=== PATIENT | male | born 1980 | race Caucasian/White ===

== ENCOUNTER 2023-11-11 06:06 | Emergency (ER) | payer OTHER, SELFPAY ==
[2023-11-11 06:16] VITALS: BP 127/81; PULSE 105; RESP 20; O2SAT 94; BMI 40.7
--- NOTE | 2023-11-11 06:49 | CRLHL7_ITS ---
For Patients: As a result of the Century Cures Act, medical imaging exams and procedure reports are released immediately into your electronic medical record. You may view this report before your referring provider. If you have questions, please contact your health care provider. Indication: Right lower quadrant pain nausea vomiting Technique: Volumetric multidetector CT images of the abdomen and pelvis were obtained after the administration of intravenous contrast. 147 cc Isovue 370 low osmolar intravenous contrast Comparison: None available. Findings: The lung bases are clear. The liver is enlarged with moderate hepatomegaly and hepatic steatosis. The portal vein is patent. The gallbladder is unremarkable without evidence of radiopaque calculus. There is no significant common biliary ductal dilatation or abrupt cut off. The spleen is normal in enhancement and size. The stomach and duodenum are grossly unremarkable. The pancreas is normal in enhancement without significant atrophy. The adrenal glands are unremarkable. There is partial devascularization of the superior pole of the left kidney with additional streaky corticomedullary differentiation. There is asymmetric perfusion of the right kidney with mildly diminished corticomedullary enhancement. No obvious obstructive uropathy. There is a mild amount of stool seen throughout the colon. There is mild distal colonic diverticulosis. The appendix is unremarkable. There is no significant mesenteric, retroperitoneal, or pelvic sidewall lymph nodes. There is partial visualization of a dissection extending from the visualized descending thoracic aorta into the infrarenal abdominal aorta with apparent inclusion of the bilateral renal artery takeoffs within the false lumen with devascularization of the superior pole of the left kidney and diminished corticomedullary perfusion of the right kidney. 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 There is demonstration of irregularity and diminished contrast perfusion of the inferior vena cava with extensive retroperitoneal hemorrhage. There is effacement of the bladder secondary to extension of retroperitoneal hemorrhage along the right iliac and psoas musculature. No intra-abdominal free air. Large fat containing umbilical hernia. The lumbar vertebral body heights are grossly maintained in satisfactory alignment without evidence of displaced fracture, lytic or blastic lesion. Impression: 1. Demonstration of an evolving dissection extending from the partially visualized descending thoracic aorta with inclusion of the bilateral renal artery takeoffs and evolving infarct of the superior pole of the left kidney. Additional diffusely decreased perfusion of the right kidney is appreciated. 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 2. Questionable irregularity of the inferior vena cava with extensive right lower quadrant retroperitoneal hemorrhage which may represent rupture from inferior vena cava versus rupture of adjacent iliac aneurysm. Findings were discussed with Dr. Saldana at 8:43 a.m. November 11, 20[address] Please note that all CT scans at this facility use dose modulation, iterative reconstruction, and/or weight-based dosing when appropriate to reduce radiation dose to as low as reasonably achievable. Dictated by Morgan Phillips MD @ 11/11/2023 8:43:59 AM (Electronically Signed)
--- NOTE | 2023-11-11 06:52 | ED_ITS ---
HPI - General Adult General Chief complaint: Abdominal Pain Stated complaint: Abdominal pain, suspected appendicitis Time Seen by Provider: 11/11/23 06:35 Source: patient Mode of arrival: ambulatory Limitations: no limitations History of Present Illness HPI narrative: 43-year-old male presents to the emergency department for evaluation of right lower quadrant abdominal pain that started at 5:00 a.m.. No trauma or injury, no prior history of similar symptoms. Denies any prior history of abdominal surgeries. Reports history of hypertension, takes an unknown medication. Pain localized in the right lower quadrant area, does not radiate. States his bowel movements have been normal, appetite has been normal. No vomiting. No history of bloody stools. No urinary pain, dysuria, hematuria or frequency. Denies testicular or pain. No back pain. Has not tried taking any medication to help with his symptoms. He also reports that he had numbness in his leg which has gotten better. It sounds more like the pain had radiated down the right leg but it is difficult with his cognition to get clarification of this. He does however state that that is better now and he can bear weight and move the leg with no weakness. He can not clarify if it is anterior, lateral, posterior the upper lower leg because he says that it is better now. When I question his previous allergy to contrast dye that is listed in his outside records, he initially had denied allergies but then confirms he got hives after being given contrast dye. Does not believe he has had steroids to premedicate in the past. Sounds like he was given p.o. Benadryl without complication last time. Past medical history notable for hypertension but I do not see that he is prescribed a medication in his outside records as he claims. He is a nonsmoker, nondrinker. Accompanied by mother today. Surgical history lists a wisdom tooth extraction. ROS notable for the abdominal and mysterious leg symptoms as described above, otherwise denies times 12 systems. I am detecting what is likely some cognitive delay which may limit his insight. Related Data Allergies Allergy/AdvReac Type Severity Reaction Status Date / Time Iodinated Contrast Media Allergy Intermediate Hives Verified 11/11/23 07:05 [facility] Medical History Hypertension ?I10 - Essential (primary) hypertension (ICD-10) Social History Smoking Status: Never smoker How often do you have a drink containing alcohol: never AUDIT-C Alcohol total score: 0 Non-prescribed substance use: denies use Exam Const: Vital Signs, click to edit/add: Vital Signs - 24 hr 11/11/23 06:16 11/11/23 06:59 11/11/23 08:13 Temperature Pulse Rate [Pulse Oximeter] 105 H Respiratory Rate 20 18 Blood Pressure [Le ft Upper Arm] 127/81 109/81 Pulse Oximetry 94 99 98 Oxygen Delivery Me thod Room Air Room Air Oxygen Flow Rate 11/11/23 08:32 11/11/23 09:29 Temperature 97.9 F Pulse Rate [Pulse Oximeter] 80 57 L Respiratory Rate 20 20 Blood Pressure [Le ft Upper Arm] 109/83 134/66 Pulse Oximetry 97 96 Oxygen Delivery Me thod Room Air Nasal Cannula Oxygen Flow Rate 2 Documenting provider has reviewed patient's vital signs: yes Common normals: no apparent distress Other: Very diaphoretic, uncomfortable. Polite and cooperative. Not an ideal historian. HENMT: Common normals: normocephalic and oropharynx normal Head and scalp: normocephalic Mouth: oral and palatal mucosa normal Throat: posterior oropharynx normal Eye: Common normals: conjunctivae normal General eye: normal appearance of both eyes Conjunctiva: conjunctiva(e) normal Neck & C-Spine: Common normals: full ROM and no lymphadenopathy Resp: Common normals: normal respiratory effort, no use of accessory muscles and clear to auscultation bilaterally Effort & inspection: able to speak in complete sentences Auscultation: clear to auscultation bilaterally Cardio: Common normals: regular rate, regular rhythm, S1 normal heart sound, S2 normal heart sound and no murmurs Rate: regular rate Rhythm: regular rhythm Heart sounds: S1 normal and S2 normal GI: Other: Obese, limiting ability of exam. I cannot tell if he is distended. He is tender to palpation of the right lower quadrant. I do not detect any obvious femoral hernia. He does have a reducible umbilical hernia which does not reproduce his pain when I manipulate this area. Bowel sounds are distant but they do sound normoactive throughout. Pain does not localize in the left or upper abdomen in any way. No obvious mass but palpation is very difficult with his body frame. : Common normals: no CVA tenderness Bladder/kidney exam: no CVA tenderness Back & Pelvis: Common normals: no CVA tenderness Extremity: Common normals: normal to inspection and normal capillary refill General: normal exam except as noted Other: Normal range of motion of left hip, knee and ankle with normal strength. Neuro: Speech: speech normal Gait (neuro): normal gait Other: Reported numbness in right leg but normal strength and normal exam. Psych: Insight: limited Judgement: fair Skin: Common normals: no rashes or lesions noted General skin exam: no rashes or lesions noted Course Course ED Course: Right lower quadrant abdominal pain and some vague leg numbness which I think is just a referred pain. Differential diagnosis is wide but includes appendicitis, volvulus, obstruction, kidney stone, testicular issue, hernia, musculoskeletal etiology, multiple others. He is quite diaphoretic and does seem ill. I recommended we place an IV, urinalysis has been ordered. Typical labs. I would like a CT of the abdomen and pelvis and will treat with Dilaudid and Zofran for pain and nausea. I will premedicate and use contrast for his CT with hydrocortisone and Benadryl. Await findings. Reevaluation(s) Time of Reevaluation #1: 07:23 Reevaluation #1: Initial lactate elevated. Meeting sepsis criteria due to tachycardia. Patient with history of hypertension, do not know his baseline and certainly this could be hypotensive for him. Will order 2 L of LR. I would recommend basing his total bolus based more on an ideal body weight than his current body weight. Will aim for 3 L. [place] body weight would be a bolus of about 2250. Time of Reevaluation #2: 08:57 Reevaluation #2: first call to transfer center [id number]. There was a significant delay in getting the CT due to patient's contrast allergy. Appropriate premedication was performed. Patient was promptly evalua miguelito following CT. He did have increase in pain and was given a 2nd dose of Dilaudid. Radiology called promptly and let me know of the dissection just as I was reviewing the CT images and saw signs of the free blood down in the right lower pelvis which would certainly be the source of his peritonitis. Made prompt calls to [facility] had about a 10 minute delay to get a call back from vascular team. Unfortunately, we do not have optimal chest imaging due to the fact that only and abdomen pelvis film was ordered based on patient's presentation. They would like for me to get a CT of the chest abdomen and pelvis. I did push back on this with concern that with our small Hospital, limited resources that delay in transfer to get this study may be problematic. They were receptive to my concerns but have recommended we get the chest abdomen pelvis CT. This is ordered. I will look at this myself and call them back to facilitate further transfer. Images will need to be pushed up to [place] as soon as they are available. Imaging is called a and urgency of this study is relayed to them. Time of Reevaluation #3: 09:15 Reevaluation #3: Is ever the repeat chest abdomen pelvis CT has been done and I have been in contact with [facility] again. They are awaiting a different specialty consult and have not yet given me permission to transfer the patient. At this point the CT has been done the images will be pushed to soon as they are available which I anticipate is going to be yet another 10-15 minutes and delay. I am still awaiting permission to transfer and the helicopter has landed and we are continuing to stabilize him for transfer. Additional Reevaluation(s): 922: Surgical teams have called me back and are now asking that I arrange an ED to ED transfer. I am starting and esmolol drip per their recommendations, I have blood ready to go. The helicopter has landed, patient is fully ready to transport. Consultations Time: 09:39 Consultation #2: ED to ED transfer accepted. Dr. Adorno. Vital Signs Vital signs: Initial Vital Signs Pulse Rate 105 H 11/11/23 06:16 Respiratory Rate 20 11/11/23 06:16 Blood Pressure 127/81 11/11/23 06:16 Blood Pressure Mean 96 11/11/23 06:16 Blood Pressure Position Sitting 11/11/23 06:16 Pulse Oximetry 94 11/11/23 06:16 Oxygen Delivery Method Room Air 11/11/23 06:16 Vital Signs Pulse Rate 105 H 11/11/23 06:16 Respiratory Rate 20 11/11/23 06:16 Blood Pressure 127/81 11/11/23 06:16 Pulse Oximetry 94 11/11/23 06:16 Oxygen Delivery Method Room Air 11/11/23 06:16 Temperature 97.9 F 11/11/23 09:29 Pulse Rate 57 L 11/11/23 09:29 Respiratory Rate 20 11/11/23 09:29 Blood Pressure 134/66 11/11/23 09:29 Pulse Oximetry 96 11/11/23 09:29 Oxygen Delivery Method Nasal Cannula 11/11/23 09:29 Oxygen Flow Rate 2 11/11/23 09:29 Medications Administered Medications: Generic Name Dose Route Start Last Admin Trade Name Freq PRN Reason Stop Dose Admin Lactated Ringer's 1,000 mls @ 500 mls/hr 11/11/23 07:58 11/11/23 09:38 Lactated Ringers 1000 Ml IV 11/11/23 09:57 500 mls/hr .Q2H ONE Administration Discontinued Medications Generic Name Dose Route Start Last Admin Trade Name Johnsonq PRN Reason Stop Dose Admin Hydrocortisone Sodium Succinate 200 mg 11/11/23 06:49 11/11/23 07:00 Hydrocortisone Sod Succinate 50 Mg/Ml Inj IVP 11/11/23 06:50 200 mg ONCE ONE Administration Hydromorphone HCl 0.5 mg 11/11/23 06:49 11/11/23 06:59 Hydromorphone 0.5 Mg/0.5 Ml Inj IVP 11/11/23 06:50 0.5 mg ONCE ONE Administration Hydromorphone HCl 0.5 mg 11/11/23 08:25 11/11/23 08:31 Hydromorphone 0.5 Mg/0.5 Ml Inj IVP 11/11/23 08:26 0.5 mg ONCE ONE Administration Sodium Chloride 1,000 mls @ 1,000 mls/hr 11/11/23 06:50 11/11/23 07:48 0.9 % Sodium Chloride 1000 Ml IV 11/11/23 07:49 1,000 mls/hr .Q1H FILIPE Infusion Diphenhydramine HCl 50 mg/ 101 mls @ 404 mls/hr 11/11/23 06:49 11/11/23 06:58 Sodium Chloride IVPB 11/11/23 06:50 404 mls/hr ONCE ONE Administration Lactated Ringer's 1,000 mls @ 1,000 mls/hr 11/11/23 07:23 11/11/23 07:47 Lactated Ringers 1000 Ml IV 11/11/23 08:22 1,000 mls/hr .Q1H ONE Administration Ondansetron HCl 4 mg 11/11/23 06:49 11/11/23 06:59 Ondansetron 2 Mg/Ml Inj IVP 11/11/23 06:50 4 mg ONCE ONE Administration Medical Decision Making Lab Data Lab results reviewed: Yes I reviewed the patient's lab results Labs: Lab Results 11/11/23 11/11/23 11/11/23 Range/Units 06:05 08:21 08:50 WBC 11.33 H (4.50-11.00) K/uL RBC 4.01 L (4.30-5.90) m/uL Hgb 13.6 (13.5-17.5) gm/dL Hct 40.8 (37.0-53.0) % MCV 102 H (80-100) fL MCH 34 (26-34) pg MCHC 33 (32-36) gm/dL RDW Coeff of Laure 13.1 (11.5-15.5) % Plt Count 168 (140-440) K/uL Neut % (Auto) 44.6 (42.0-72.0) % Lymph % (Auto) 46.2 H (20-44) % Hanson % (Auto) 5.4 (0.0-11.0) % Eos % (Auto) 2.6 (0.0-7.0) % Baso % (Auto) 0.4 (0.0-3.0) % Neut # (Auto) 5.10 (1.7-7.0) K/uL Lymph # (Auto) 5.20 H (0.90-2.90) K/uL Hanson # (Auto) 0.60 (0.00-0.90) K/UL Eos # (Auto) 0.30 (0.00-0.50) K/uL Baso # (Auto) 0.00 (0.00-0.30) K/uL Abs Immat Gran (auto) 0.10 (0.00-0.30) K/uL Imm/Tot Granulo (auto) 0.8 % Sodium 138 (135-149) mmol/L Potassium 3.1 L (3.6-5.1) mmol/L Chloride 105 (96-114) mmol/L Carbon Dioxide 19 L (20-32) mmol/L Anion Gap 14 (7-15) mEq/L BUN 18 (5-24) mg/dL Creatinine 1.2 (0.5-1.5) mg/dL Estimated Creat Clear 88.92 Estimated GFR 78 ml/min Glucose 322 H (60-115) mg/dL Lactate 5.8 H* 3.9 H (0.5-1.9) mmol/L Calcium 8.2 L (8.4-10.6) mg/dL Total Bilirubin 0.5 (0.1-1.5) mg/dL AST 28 (12-35) U/L ALT 33 (4-50) U/L Alkaline Phosphatase 90 (40-150) U/L C-Reactive Protein < 0.5 L (0.5-1.0) mg/dL Total Protein 6.8 (6.0-8.3) g/dL Albumin 4.1 (3.3-5.0) g/dL Lipase 283 (23-300) U/L Crossmatch (AHG) See Detail Imaging Data CT Chest/Ab/Pelvis: Attestation: I have reviewed the pertinent imaging results. My impression: Large retroperitoneal hematoma, I would still viewing the image when the radiology team called to alert me of dissection Radiologist's impression: Impression: 1. Demonstration of a [place] type a dissection extending from the aortic root to the level of the iliac arteries. There is absent perfusion within the right common carotid artery as well as infarct changes of the left kidney. Otherwise, there is preserved perfusion within the branch vessels of the thoracic and abdominal aorta. 2. Overall no significantly increased retroperitoneal hemorrhage from recent comparison exam without evidence of contrast blush or staining to suggest active bleeding. 3. 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 Findings discussed with Dr. Moran at 9:30 a.m. 11/11/2023 Critical Care Time Critical Care Time Critical Care Time: Yes Attestation: The patient required my highest level preparedness to intervene emergently and I personally spent this critical care time directly and personally managing the patient. This critical care time included: Obtaining a history; Examining the patient; Pulse oximetry; Ordering and reviewing of studies; Arranging urgent treatment with development of a management plan; Evaluation of patients response to treatment; Frequent reassessment discussions with other providers. This critical care time was performed to assess and manage the high probability of imminent life-threatening deterioration that could result in multiorgan failure. It was exclusive of separate billable procedures and treating other patients and teaching time. Total Critical Care Time in Minutes: 80 (0820 to 0940, dedicated critical care time) Discharge Plan Discharge Clinical Impression: Aortic dissection Patient Disposition: Xfer [facility] Discharge Location: [facility] Condition: Critical Stand Alone Forms: [facility] Info Instructions
[2023-11-11] MEDS: diphenhydrAMINE 50 MG in 0.9 % SODIUM CHLORIDE 100 ml 100 ML 404 MG IVPB (06:58)
[2023-11-11 06:59] VITALS: O2SAT 99
[2023-11-11] MEDS: HYDROmorphone 0.5 mg/0.5 ml inj IVP ×2 (06:59→08:31)
[2023-11-11] MEDS: 0.9 % SODIUM CHLORIDE 1000 ml 1,000 ML IV (06:59)
[2023-11-11] MEDS: ONDANSETRON 2 MG/ML inj 4 MG IVP (06:59)
[2023-11-11] MEDS: HYDROCORTISONE SOD SUCCINATE 50 MG/ML inj 200 MG IVP (07:00)
[2023-11-11 07:04] LABS: Lactate Sepsis w/Reflex* 5.8 mmol/L (0.5-1.9)
[2023-11-11 07:05] LABS: Basophils Percent Auto 0.4 % (0.0-3.0); Eosinophils Percent Auto 2.6 % (0.0-7.0); Hematocrit 40.8 % (37.0-53.0); Hemoglobin* 13.6 gm/dL (13.5-17.5); Immature Granulocytes Pct Auto 0.8 %; Lymphocytes Percent Auto 46.2 % (20-44); Mean Corpuscular HGB Conc 33 gm/dL (32-36); Mean Corpuscular Hemoglobin 34 pg (26-34); Mean Corpuscular Volume 102 fL (80-100); Monocytes Percent Auto 5.4 % (0.0-11.0); Neutrophils Percent Auto 44.6 % (42.0-72.0); Platelet Count* 168 K/uL (140-440); RDW Coefficient of Variation % 13.1 % (11.5-15.5); Red Blood Count 4.01 m/uL (4.30-5.90); White Blood Count* 11.33 K/uL (4.50-11.00)
[2023-11-11 07:10] LABS: Slide Review Reflex No
[2023-11-11 07:18] LABS: Albumin* 4.1 g/dL (3.3-5.0); Chloride* 105 mmol/L (96-114); Sodium* 138 mmol/L (135-149)
[2023-11-11 07:19] LABS: Potassium* 3.1 mmol/L (3.6-5.1)
[2023-11-11 07:21] LABS: Alkaline Phosphatase* 90 U/L (40-150); Anion Gap 14 mEq/L (7-15); Aspartate Amino Transferase* 28 U/L (12-35); Bilirubin Total* 0.5 mg/dL (0.1-1.5); Carbon Dioxide* 19 mmol/L (20-32); Creatinine* 1.2 mg/dL (0.5-1.5); Est. Creatinine Clearance* 88.92; Estimated Glomerular Filt Rate 78 ml/min; Total Protein* 6.8 g/dL (6.0-8.3)
[2023-11-11 07:22] LABS: Alanine Aminotransferase* 33 U/L (4-50); Blood Urea Nitrogen* 18 mg/dL (5-24); Calcium* 8.2 mg/dL (8.4-10.6); Glucose* 322 mg/dL (60-115); Lipase* 283 U/L (23-300)
[2023-11-11 07:24] LABS: C Reactive Protein* < 0.5 mg/dL (0.5-1.0)
[2023-11-11] MEDS: LACTATED RINGERS 1000 ML 1,000 ML IV (07:47)
[2023-11-11 08:13] VITALS: BP 109/81; RESP 18; O2SAT 98
[2023-11-11 08:26] LABS: Lactate Sepsis 2 Hour 3.9 mmol/L (0.5-1.9)
[2023-11-11 08:32] VITALS: BP 109/83; PULSE 80; RESP 20; O2SAT 97
--- NOTE | 2023-11-11 08:55 | CRLHL7_ITS ---
For Patients: As a result of the 21st Century Cures Act, medical imaging exams and procedure reports are released immediately into your electronic medical record. You may view this report before your referring provider. If you have questions, please contact your health care provider. Indication: Dissection seen on recent abdomen and pelvis exam, evaluate extent Technique: Volumetric multidetector CT images of the chest, abdomen, and pelvis were obtained after the administration of intravenous contrast using an angiographic protocol. Maximum intensity projection images were also obtained. 95 cc Isovue 370 low osmolar intravenous contrast Comparison: CT abdomen and pelvis November 11, 2023 FINDINGS: CHEST The thoracic inlet is unremarkable. The thyroid gland is within normal limits. There is demonstration of aortic dissection extending from the aortic root with takeoff just above the aortic valve. There is dissection extension into the brachiocephalic artery with absent perfusion of the partially visualized right common carotid artery. There is perfusion of the right axillary artery. The left subclavian and left common carotid arteries remain perfused. There is no filling defect to suggest pulmonary embolus. There is no mediastinal, hilar, or axillary adenopathy. There is no focal consolidation, effusion, or pneumothorax. The thoracic osseus structures are intact without fracture, lytic, or blastic lesion. The thoracic vertebral body heights are grossly maintained with minimal endplate Schmorl`s defects. There is no significant spondylolisthesis or displaced fracture. ABDOMEN AND PELVIS The liver is enlarged with hepatomegaly and hepatic steatosis. The spleen is normal in attenuation and size. The gallbladder is unremarkable without radiopaque calculus. There is no intrahepatic or common ductal dilatation. The stomach and duodenum are grossly unremarkable. The pancreas is normal in enhancement without significant atrophy. The adrenal glands are unremarkable without evidence of adenoma. There is infarct of the superior pole of the left kidney with demonstration of dissection extending into the bilateral renal arteries. There are additional wedge-shaped infarcts of the inferior pole. The right kidney appears grossly well-perfused. There is a minimal amount of intracolonic stool. There is no significant colonic diverticulosis. The appendix is unremarkable without significant inflammatory change. There is demonstration of thoracic aortic dissection extending into the abdominal aorta with involvement of the origins of the bilateral renal arteries. The celiac axis and superior mesenteric arteries remain perfused. There is preserved perfusion of the inferior mesenteric artery. Dissection extends to the level of the iliac arteries with demonstration of a left common iliac artery aneurysm measuring up to 9.1 by 4.8 centimeters in greatest transverse and AP dimensions. There is preserved perfusion of the bilateral femoral and iliac arteries. There is redemonstration of extensive hemorrhage seen in the retroperitoneum on the right side which may represent sequela of rupture without evidence of significant contrast opacification or additional hemorrhage from recent comparison exam. The remaining solid pelvic viscera are otherwise grossly unremarkable. There is no pathologically enlarged epigastric, mesenteric, retroperitoneal, or pelvic sidewall lymph node. Moderate fat containing umbilical hernia. No intra-abdominal free air. The visualized osseous structures are grossly intact without evidence of displaced fracture, lytic or blastic lesion. The lumbar vertebral body heights are grossly maintained in satisfactory alignment without evidence of displaced fracture. Impression: 1. Demonstration of a Peter type a dissection extending from the aortic root to the level of the iliac arteries. There is absent perfusion within the right common carotid artery as well as infarct changes of the left kidney. Otherwise, there is preserved perfusion within the branch vessels of the thoracic and abdominal aorta. 2. Overall no significantly increased retroperitoneal hemorrhage from recent comparison exam without evidence of contrast blush or staining to suggest active bleeding. 3. 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 Findings discussed with Dr. Moran at 9:30 a.m. 11/11/[address] note [address] all [address] scans at this facility use dose modulation, iterative reconstruction, and/or weight-based dosing when appropriate to reduce radiation dose to as low as reasonably achievable. Dictated by Morgan Phillips MD @ 11/11/2023 9:36:07 AM (Electronically Signed)
--- NOTE | 2023-11-11 08:57 | RESP.RT ---
placed on NC 2 Lpm with EtCO2 in line 31-36 torr, SaO2 99%, RR 18/minute, breathing regular/easy.
[2023-11-11 09:29] VITALS: BP 134/66; PULSE 57; RESP 20; TEMP 36.6; O2SAT 96
--- NOTE | 2023-11-11 09:32 | ED.NURSE ---
Patient report given to [facility] [employer] biofuels processing technician and RN. Patient was alert and oriented on 2 liters of oxygen at discharge. Both IVs were patent. Patient was air transported to [place] ER per Dr. Tenorio and accepting Heydi Palomo Vistals stable prior to transport
[2023-11-11] MEDS: LACTATED RINGERS 1000 ML 1,000 ML 500 ML IV (09:38)
--- NOTE | 2023-11-11 09:40 | ED.NURSE ---
Flight crew had blood available on the helicopter if needed in route.
--- NOTE | 2023-11-11 09:43 | RESP.RT ---
Assist with transport to CT on NC 2 Lpm, VSS and return to room. [facility] Air transport to [place].
== END 2023-11-11 09:57 | disposition short-term general hospital (02) ==
PROVIDERS: Emergency Provider Family Medicine; PCP Student in an Organized Health Care Education/Training Program
DX: I71.00 Dissection of unspecified site of aorta (principal)
CPT/HCPCS: 36415; 74174; 74177; 80053; 81001; 81003; 83605; 83690; 85025; 86140; 86850; 86900; 86901; 86922; 94761; 96365; 96375; 99284; 99291; J1170; J1200; J1720; J2405; J7030; J7120; P9016; Q9967

== ENCOUNTER 2024-03-25 13:00 | Outpatient (RCR) | payer OTHER, SELFPAY | END 2024-07-10 14:00 | disposition home or self-care (01) | PROVIDERS: PCP Student in an Organized Health Care Education/Training Program; Visit Provider Nurse Practitioner Family | DX: R53.81 Other malaise (principal); I71.010 Dissection of ascending aorta; M62.81 Muscle weakness (generalized); R26.81 Unsteadiness on feet; Z51.89 Encounter for other specified aftercare | CPT/HCPCS: 97110; 97162; 97165; 97530 ==